=== PATIENT | male | born 1965 | race Caucasian/White ===

== ENCOUNTER 2018-08-23 15:08 | Emergency (ER) | payer OTHER ==
[2018-08-23] MEDS: LIDOCAINE 2%/EPI MPF (SDV) 20 ML VIAL INJ ×2 (16:58→17:05)
== END 2018-08-23 18:42 | disposition home or self-care (01) ==
LOC: E/R 15:08
DX: S01.512A Laceration without foreign body of oral cavity, initial encounter (principal); N18.6 End stage renal disease; I12.0 Hypertensive chronic kidney disease with stage 5 chronic kidney disease or end stage renal disease; X58.XXXA Exposure to other specified factors, initial encounter; Y92.9 Unspecified place or not applicable; Z79.84 Long term (current) use of oral hypoglycemic drugs; Z99.2 Dependence on renal dialysis
CPT/HCPCS: 41250; 99282-25